=== PATIENT | female | born 1970 | race Caucasian/White ===

== ENCOUNTER 2017-05-15 09:12 | Inpatient (IN) | payer OTHER ==
[~2017-05-15] VITALS: Ht 170.2 cm; Wt 69.4 kg
[2017-05-15 09:59] LABS: ABSOLUTE BASOPHIL COUNT 0 /CUMM (0.0-0.2); ABSOLUTE EOSINOPHIL COUNT 0 /CUMM (0.0-0.7); ABSOLUTE GRANULOCYTE CT 6.6 /CUMM (1.4-6.5); ABSOLUTE LYMPH COUNT 1.1 /CUMM (1.2-3.4); ABSOLUTE MONOCYTE COUNT 0.6 /CUMM (0.10-0.60); BASOPHIL % 0.4 % (0.0-2.0); EOSINOPHIL % 0.6 % (0-5); GRANULOCYTE % 79.3 % (42.2-75.2); HEMATOCRIT 30.2 % (37-47); MEAN CORPUSCULAR HGB 26.1 PG (27.0-31.0); MEAN CORPUSCULAR HGB CONC 32.9 G/DL (33.0-37.0); MEAN CORPUSCULAR VOLUME 79.3 FL (81.0-99.0); MEAN PLATELET VOLUME 6.9 FL (7.4-10.4); PLATELET COUNT 424 /CUMM (130-400); RBC DISTRIBUTION WIDTH 17.6 % (11.5-14.5); RED BLOOD CELL CT 3.81 /CUMM (4.20-5.40); WHITE BLOOD CELL COUNT 8.3 /CUMM (4.8-10.8)
--- NOTE | 2017-05-15 10:33 | ED PSYCHIATRIC COMPLAINT ---
History of Present Illness General Chief Complaint: Psychiatric Related Complaint Stated Complaint: PT STATES"I GOT ANGRY" BLD TO LFT WRIST Source: patient, old records Exam Limitations: no limitations Vital Signs & Intake/Output Vital Signs & Intake/Output Vital Signs Date Time Temp Pulse Resp B/P B/P Pulse O2 O2 Flow FiO2 Mean Ox Delivery Rate 05/154 98.4 59 16 103/56 99 Room Air 05/15 1733 98.4 89 16 103/56 05/15 0942 99 Room Air 05/15 0919 97.0 91 16 124/80 98 Room Air Allergies Coded Allergies: No Known Allergies (05/15/17) Reconcile Medications No Known Home Medications Triage Note: 47F ARRIVES TEARFUL, DEPRESSED, +SI WITH PLAN TO JUMP IN FRONT OF A BUS. FRESH SUPERFICIAL LAC'S TO ENTIRE LEFT FOREARM. DENIES HI. HAS BEEN OFF MEDS X2 WEEKS AND FALL OUT WITH PSYCHIATRIST. CURRENTLY BEING TAPERED ON METHADONE, DAILY DOSE 50MG FROM [facility]. PT LEFT [facility] MONDAY AND THAT WAS HER LAST DOSE. PRESENTS DOWNCAST, DYSPHORIC. AOOX3. AGREEABLE TO PLAN FOR EVALUATION, WANDING AND CHANGING. GIVEN URINE CUP FOR SAMPLE. TO BAUMAN D AND SECURITY PRESENT FOR WANDING AND CHANGING Triage Nurses Notes Reviewed? yes Onset: Just prior to arrival Duration: week(s): Timing: recent history Severity: moderate, severe Associated Symptoms: anxiety, impaired concentration, insomnia, suicidal ideation LMP (ages 10-50): unknown : No Patient currently breastfeeds: No HPI: 2 weeks prior to admission patient reports running out of her bipolar medications and has been having increasing anxiety impaired concentration insomnia suicidal thoughts with illegal drug use of heroin cocaine. Prior to admission she began cutting her left forearm. She denies fever chills nausea vomiting diarrhea abdominal pain chest pain shortness breath headache dysuria rash homicidal ideation hallucination. Past History Travel History Traveled to [place] past 21 day No Medical History Any Pertinent Medical History? see below for history Neurological: NONE EENT: NONE Cardiovascular: NONE Respiratory: NONE Gastrointestinal: NONE Hepatic: NONE Renal: NONE Musculoskeletal: NONE Psychiatric: anxiety, depression, METHADONE Endocrine: NONE Blood Disorders: NONE Isolation History: Standard Surgical History Surgical History: non-contributory Psychosocial History What is your primary language Haitian Tobacco Use: Current Daily Use Daily Tobacco Use Amount/Type: => 5 Cigarettes daily ETOH Use: occasional use Illicit Drug Use: benzodiazepines Family History Hx Contributory? No Review of Systems Review of Systems Constitutional: Reports: no symptoms. EENTM: Reports: no symptoms. Respiratory: Reports: no symptoms. Cardiovascular: Reports: no symptoms. GI: Reports: no symptoms. Genitourinary: Reports: no symptoms. Musculoskeletal: Reports: no symptoms. Skin: Reports: see HPI. Neurological/Psychological: Reports: see HPI, anxiety, depressed, emotional problems. Hematologic/Endocrine: Reports: no symptoms. Immunologic/Allergic: Reports: no symptoms. All Other Systems: Reviewed and Negative Physical Exam Physical Exam General Appearance: well developed/nourished, alert, awake, anxious, moderate distress, thin Head: atraumatic, normal appearance Eyes: Bilateral: normal appearance, PERRL, EOMI. Ears, Nose, Throat: normal pharynx, normal ENT inspection, hearing grossly normal Neck: normal inspection, supple, full range of motion, no midline tenderness Respiratory: normal breath sounds, chest non-tender, no respiratory distress, quiet respiration, lungs clear Cardiovascular: regular rate/rhythm, normal peripheral pulses, norml femoral pulses equa Gastrointestinal: normal bowel sounds, soft, non-tender, no organomegaly Extremities: normal range of motion, no ligament instability Neurological/Psychiatric: no motor/sensory deficits, awake, agitated, alert, anxious, hang gliding instructor II-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 yes 2 Previous Attempts/Psych Care yes 1 Excessive Ethanol/Drug Use? yes 1 Rational Thinking Loss? yes 2 Single//? yes 1 Social Support? has support 0 Stated Future Intent? yes 2 Total 9 SAD PERSONS Done? yes Progress Differential Diagnosis: drug intoxication, drug overdose, drug withdrawal, electrolyte abnormality, hypoglycemia Plan of Care: Orders Procedure Date/time Status Regular Diet 05/15 L Active Admit to inpatient psych 05/15 1814 Active Continuous Observation Monitor 05/15 1735 Active CIWA 05/15 1523 Active Continuous Observation Monitor 05/15 1335 Active Add-on Test (ER Only) 05/15 1145 Active ETHANOL 01/22 0948 Complete Continuous Observation Monitor 05/15 936 Active URINE 05/15 936 Complete COMPREHENSIVE METABOLIC PANEL 05/15 936 Complete CBC WITHOUT DIFFERENTIAL 05/15 936 Complete EKG 05/15 936 Active ED CRISIS PSYCH CONSULT 05/15 936 Active URINE DRUGS OF ABUSE 05/15 928 Complete Current Medications Sig/Shirin Start time Last Medication Dose Stop Time Status Admin Acetaminophen 650 MG ONCE ONE 05/15 1814 UNVr (Tylenol) 05/15 1815 Lorazepam 1 MG ONE ONE 05/15 1814 UNVr (Ativan) 05/15 1815 Laboratory Tests 05/15/17947: Anion Gap 13, Estimated GFR > 60, BUN/Creatinine Ratio 16.7, Glucose 109 H, Calcium 9.3, Total Bilirubin 0.4, AST 28, ALT 27, Alkaline Phosphatase 99, Total Protein 7.3, Albumin 3.8, Globulin 3.5, Albumin/Globulin Ratio 1.1, CBC w Diff NO MAN DIFF REQ, RBC 3.81 L, MCV 79.3 L, MCH 26.1 L, RDW 17.6 H, MPV 6.9 L, Gran % 79.3 H, Lymphocytes % 13.0 L, Monocytes % 6.7, Eosinophils % 0.6, Basophils % 0.4, Absolute Granulocytes 6.6 H, Absolute Lymphocytes 1.1 L, Absolute Monocytes 0.6, Absolute Eosinophils 0, Absolute Basophils 0, PUBS MCHC 32.9 L, Serum Alcohol < 10.0 05/15/17940: Urine Opiates Screen > 4000.00 H, Methadone Screen > 735 H, Barbiturate Screen 74, Ur Phencyclidine Scrn 12.60, Amphetamines Screen 105, U Benzodiazepines Scrn < 85, Urine Cocaine Screen > 1000 H, Urine Cannabis Screen < 5.00, Urine Test NEGATIVE 05/15/17936: Methadone Screen Cancelled, Barbiturate Screen Cancelled, Ur Phencyclidine Scrn Cancelled, Amphetamines Screen Cancelled, U Benzodiazepines Scrn Cancelled, Urine Cocaine Screen Cancelled, Urine Cannabis Screen Cancelled Departure Departure Time of Disposition: 1814 Disposition: STILL A PATIENT Condition: Stable Clinical Impression Primary Impression: Depression with suicidal ideation Secondary Impressions: Deliberate self-cutting, Polysubstance abuse Referrals: Patient Has No Primary Care Dr (PCP/Family) Departure Forms: Customer Survey General Discharge Information Prescriptions: Current Visit Scripts No Known Home Medications Psych Admission Note Psychiatric Admission: I have seen and evaluated JENNY ALVAREZ. I have also reviewed all the pertinent lab results and diagnostic results. JENNY ALVAREZ will be admitted to our inpatient Psychiatric unit for treatment and care.
--- NOTE | 2017-05-15 16:13 | ED PSYCH CRISIS CONSULTATION ---
Crisis Consult Basic Assessment Date of Consult: 05/15/17 Responsible Person/Accompanied By: self Insurance Authorization: Insurance #1: Insurance name: JIGAR BATES Phone number: Policy number: [id number] Group number: Authorization number: ED Provider: Patient's ED Provider: Shan Bearden MD Primary Care Physician: Patient's PCP: Patient Has No Primary Care Dr PCP's Phone Number: Current Psychiatrist: last seen by Bruno Fransisco LANGE [phone]. d/c from practice Apr 28 2017 Chief Complaint: Psychiatric Related Complaint Patient's Quote: I just wasnt to jump in front of a bus. Present Illness: Pt is a 47 yo female presenting to [facility] ED this morning with SI. Pt states she is having racing and crazy thoughts including thoughts to "jump in front of a bus". Pt presents fresh superficial lacerations on her left forearm. She states it was both an act of self-harm and to release anxiety. Pt reports a hx of multiple suicide attempts with last one 6 mos ago from Klonopin overdose. She reports her first inpatient psychiatric admission was at age 21. Reportedly pt has had 3 inpatient admissions at [facility] in 2017. She reports previous diagnosis of Bipolar, Borderline Personality d/o and OCD. Pt also has a long hx of substance abuse including cocaine, benzos and heroin. Pt reports receiving Methadone 50 mg from [facility] past 6 yrs. Pt reports attempting benzo detox at [facility] in [place] but left early. Pt reports receiving medication management with Jean Moody APRN in [place] ([phone]) who abruptly stopped prescribing her medications. She reports uncertainty on why he no longer will treat her (see collateral section for further medication history). Pt reports relapse of heroin and cocaine since medications were discontinued. Pt reports feeling overwhelmed with emotions and states "I feel like I'm being buried alive ". Pt reports "incessant chatter" of thoughts to harm self. Pt reports she is on disability and doesn't work. Pt reports residing with her 25 yo son in [place]. She has 4 younger children that reside in [place] with her mother. Pt reports sleeping alot. Pt states "I cant get enough sleep. I want to sleep and not wake up". Pt denies HI, AH/VH. No presence of psychosis. Pt presents as lethargic, engaged, cooperative and OX3. Pt verbalizing needing inpatient psychiatric admission or she will harm herself. Case reviewed with Dr Pérez. Pt will be admitted voluntarily to [facility]. Patient's Address: [address] [place] [address] Other Phone Number: Who Do You Live With? Son (age 25) Family/Informants Interviewed: Collateral provided by Javan Moody APRN toll repairer central office. Pt seen since May 2015. Prescribed Xanax 2mg/4x/day; Latuda 80mg; Trileptal 300mg and Prozosin 5 mg. Plan was to work towards discontinuing xanax and starting Prozac 40 mg BID and Klonopin 1mg BID but pt was discharged from practice on Apr 28 so unable to follow through on plan. Pt was discharged do to poor compliance, not attending appointments and concerns that she was being prescribed benzos by 2 different providers and she was either abusing them or selling them. Collateral also reports that pt had 3 inpatient psycha dmissions at [facility] past yr (June, July and September 2016). Allergies - Coded Allergies: No Known Allergies (05/15/17) Current Medications - No Known Home Medications Laboratory Results: Laboratory Tests 05/15/17 0948: Anion Gap 13, Estimated GFR > 60, BUN/Creatinine Ratio 16.7, Glucose 109 H, Calcium 9.3, Total Bilirubin 0.4, AST 28, ALT 27, Alkaline Phosphatase 99, Total Protein 7.3, Albumin 3.8, Globulin 3.5, Albumin/Globulin Ratio 1.1, CBC w Diff NO MAN DIFF REQ, RBC 3.81 L, MCV 79.3 L, MCH 26.1 L, RDW 17.6 H, MPV 6.9 L, Gran % 79.3 H, Lymphocytes % 13.0 L, Monocytes % 6.7, Eosinophils % 0.6, Basophils % 0.4, Absolute Granulocytes 6.6 H, Absolute Lymphocytes 1.1 L, Absolute Monocytes 0.6, Absolute Eosinophils 0, Absolute Basophils 0, PUBS MCHC 32.9 L, Serum Alcohol < 10.0 05/15/17 0941: Urine Opiates Screen > 4000.00 H, Methadone Screen > 735 H, Barbiturate Screen 74, Ur Phencyclidine Scrn 12.60, Amphetamines Screen 105, U Benzodiazepines Scrn < 85, Urine Cocaine Screen > 1000 H, Urine Cannabis Screen < 5.00, Urine Test NEGATIVE 05/15/17 0937: Methadone Screen Cancelled, Barbiturate Screen Cancelled, Ur Phencyclidine Scrn Cancelled, Amphetamines Screen Cancelled, U Benzodiazepines Scrn Cancelled, Urine Cocaine Screen Cancelled, Urine Cannabis Screen Cancelled Past History Past Medical History Neurological: NONE EENT: NONE Cardiovascular: NONE Respiratory: NONE Gastrointestinal: NONE Hepatic: NONE Renal: NONE Musculoskeletal: NONE Psychiatric: anxiety, depression, METHADONE Endocrine: NONE Blood Disorders: NONE Past Surgical History Surgical History: non-contributory Psychosocial History Strengths/Capabilities: pt reports motivation to get help Psychiatric Treatment History Psych Treatment Psychiatric Treatment Yes Inpatient Treatment Yes Outpatient Treatment Yes Location of Treatment [facility] 2017 X3; [facility] Reason for Treatment Bipolar d/o polysubstance abuse Dates of Treatment chronic tx hx. First inpatient age 21. Response to Treatment pt has long history of substance abuse and difficulty managing mental health Diagnosis by History: Bipolar d/o Borderline personality Substance Use/Abuse History Drug Use/Abuse 1 Substances Used/Abused Yes Substance Used/Abused Cocaine Last Used yesterday Drug Use/Abuse 2 Substances Used/Abused Yes Substance Used/Abused Benzodiazepines Drug Use/Abuse 3 Substances Used/Abused Yes Drug Use/Abuse 4 Substances Used/Abused Yes Substance Used/Abused Heroin Drug Use/Abuse 5 Substances Used/Abused Yes Substance Used/Abused Prescribed Opiates (Methadone) Last Used last prescribed dose may 10 How much used/taken 50 mg For how long 6 yrs Substance Abuse Treatment Substance Abuse Treatment Past Substance Abuse TX Yes Inpatient Treatment Yes Outpatient Treatment Yes Location of Treatment [facility]; [facility] Reason for Treatment last week detox at [facility] Methadone maintenance at [facility] Response to Treatment pt prematurely left detox this weekend. Pt discharged from [facility] on apr 28 due to concerns she was abusing benzos Comments: pt reports hx of heroin abuse and on methadone past 6 yrs, Pt reports recent cocaine and heroin use to self medicate following [facility] stopping prescriptions to her medications. Pt reportedly being prescribed benzos by [facility] and [facility] Current Mental Status Mental Status Orientation: Person, Place, Situation Affect: Depressed Speech: WNL Neuro-vegetative: Anhedonia, Appetite Decreased, Energy Decreased, Helpless, Hypersomnia Appearance Appearance- Dress/Hygiene: pt in hospital scrubs; disheveled, fresh superficial lacerations to left forearm. Behaviors Thought Process: WNL Thought Content: Auditory Hallucinations Memory: WNL Insight: Fair SI/HI Risk Assessment Past Suicidal Ideation/Attempts Yes Current Suicidal Ideation/Att Yes Past Homicidal Ideation/Att: No Current Homicidal Ideation/Attempts No Degree of Intent: States Intent Danger To: Self Gravely Disabled: Poor Impulse Control, Poor Judgment Risk Factors: high anxiety/distress, history of suicide atmpts, SA/MH hospitalized, substance abuse, poor impulse control, limited support Lethality Ratin PTSD Checklist PTSD Done? patient declined ED Management Sitter: Yes Restraints: No DSM5/PS Stressors/Medical Prob Diagnosis' (DSM 5, Stressors, Medical): Unspecified Bipolar Opiate Use d/o Cocaine use d/o Benzo Use d/o off medications recent detox attempt Current GAF: 20 Comments: Pt reports off medications past 2 weeks. Using multiple substance to self- medicate. Reports SI, racing and "crazy" thoughts. Fresh superficial lacerations entire left forearm. Pt hx of multiple suicide attempts and 3 inpatient admissions at [facility] past yr. Departure Disposition Psych Medical Clearance Date: 05/15/17 Medically Cleared at: 1445 Time Started: 1445 Time Ended: 1530 Psychiatrist Consulted: Rosamaria Pérez MD Date Disposition Established: 05/15/17 Time Disposition Established: 1744 Plan for Disposition - Modality: Inpatient Psychiatry Facility: [facility] Rationale for Disposition: Pt requires inpatient psychiatric admission to treat SI and re-establish psychotropic medications. Type of IP Admission: Voluntary Referrals Patient Has No Primary Care Dr (PCP/Family)
[2017-05-15 17:33] VITALS: BP 103/56
--- NOTE | 2017-05-15 19:04 | IP CRISIS DIAG ASSESS PSYCH ---
Diagnostic Assessment Basic Assessment Insurance Authorization: Insurance #1: Insurance name: JIGAR Hassan [employer] Phone number: Policy number: [id number] Group number: Authorization number: [id number] Primary Care Physician: Patient's PCP: Patient Has No Primary Care Dr PCP's Phone Number: Patient's Quote: I just wasnt to jump in front of a bus. Present Illness: Pt is a 47 yo female presenting to [facility] this morning with SI. Pt states she is having racing and crazy thoughts including thoughts to "jump in front of a bus". Pt presents fresh superficial lacerations on her left forearm. She states it was both an act of self-harm and to release anxiety. Pt reports a hx of multiple suicide attempts with last one 6 mos ago from Klonopin overdose. She reports her first inpatient psychiatric admission was at age 21. Reportedly pt has had 3 inpatient admissions at [facility] in 2017. She reports previous diagnosis of Bipolar, Borderline Personality d/o and OCD. Pt also has a long hx of substance abuse including cocaine, benzos and heroin. Pt reports receiving Methadone 50 mg from [facility] past 6 yrs. Pt reports attempting benzo detox at [facility] in [place] but left early. Pt reports receiving medication management with Jean Moody APRN in [place] ([phone]) who abruptly stopped prescribing her medications. She reports uncertainty on why he no longer will treat her (see collateral section for further medication history). Pt reports relapse of heroin and cocaine since medications were discontinued. Pt reports feeling overwhelmed with emotions and states "I feel like I'm being buried alive ". Pt reports "incessant chatter" of thoughts to harm self. Pt reports she is on disability and doesn't work. Pt reports residing with her 25 yo son in [place]. She has 4 younger children that reside in [place] with her mother. Pt reports sleeping alot. Pt states "I cant get enough sleep. I want to sleep and not wake up". Pt denies HI, AH/VH. No presence of psychosis. Pt presents as lethargic, engaged, cooperative and OX3. Pt verbalizing needing inpatient psychiatric admission or she will harm herself. Case reviewed with Dr Pérez. Pt will be admitted voluntarily to [facility]. Patient's Address: [address] [place] [address] Other Phone Number: Who Do You Live With? Son (age 25) Feel Safe Where You Live? Yes Feel Safe in Your Relationship Yes Marital Status: single Do You Have Children? Yes Ages? 25,22,16,13,6 Primary Language? Slovak Language(s) Spoken At Home: Slovak Family/Informants Interviewed: Collateral provided by Javan Moody APRN program officer. Pt seen since May 2015. Prescribed Xanax 2mg/4x/day; Latuda 80mg; Trileptal 300mg and Prozosin 5 mg. Plan was to work towards discontinuing xanax and starting Prozac 40 mg BID and Klonopin 1mg BID but pt was discharged from practice on Apr 28 so unable to follow through on plan. Pt was discharged do to poor compliance, not attending appointments and concerns that she was being prescribed benzos by 2 different providers and she was either abusing them or selling them. Collateral also reports that pt had 3 inpatient psycha dmissions at [facility] past yr (June, July and September 2016). Allergies - Coded Allergies: No Known Allergies (05/15/17) Current Medications - No Known Home Medications Consequences of Psych Med Use: pt has been off medications past 2 weeks. Prior provider reports pt hasn't been med compliant Lab Results: Laboratory Tests 05/15/17 0948: Anion Gap 13, Estimated GFR > 60, BUN/Creatinine Ratio 16.7, Glucose 109 H, Calcium 9.3, Total Bilirubin 0.4, AST 28, ALT 27, Alkaline Phosphatase 99, Total Protein 7.3, Albumin 3.8, Globulin 3.5, Albumin/Globulin Ratio 1.1, CBC w Diff NO MAN DIFF REQ, RBC 3.81 L, MCV 79.3 L, MCH 26.1 L, RDW 17.6 H, MPV 6.9 L, Gran % 79.3 H, Lymphocytes % 13.0 L, Monocytes % 6.7, Eosinophils % 0.6, Basophils % 0.4, Absolute Granulocytes 6.6 H, Absolute Lymphocytes 1.1 L, Absolute Monocytes 0.6, Absolute Eosinophils 0, Absolute Basophils 0, PUBS MCHC 32.9 L, Serum Alcohol < 10.0 05/15/17 0941: Urine Opiates Screen > 4000.00 H, Methadone Screen > 735 H, Barbiturate Screen 74, Ur Phencyclidine Scrn 12.60, Amphetamines Screen 105, U Benzodiazepines Scrn < 85, Urine Cocaine Screen > 1000 H, Urine Cannabis Screen < 5.00, Urine Test NEGATIVE 05/15/17 0937: Methadone Screen Cancelled, Barbiturate Screen Cancelled, Ur Phencyclidine Scrn Cancelled, Amphetamines Screen Cancelled, U Benzodiazepines Scrn Cancelled, Urine Cocaine Screen Cancelled, Urine Cannabis Screen Cancelled Toxicology Screen Completed? Yes Results: positive Symptoms of Use: pt positive for heroin and cocaine. pt receives methadone 50mg at [facility] Past History Past Surgical History Surgical History none Abuse/Trauma History Trauma History/Current Trauma: Denies Psychosocial History Strengths/Capabilities: pt reports motivation to get help Psychiatric Treatment History Psych Treatment Psychiatric Treatment Yes Inpatient Treatment Yes Outpatient Treatment Yes Location of Treatment [facility] 2017 X3; [facility] Reason for Treatment Bipolar d/o polysubstance abuse Dates of Treatment chronic tx hx. First inpatient age 21. Response to Treatment pt has long history of substance abuse and difficulty managing mental health Diagnosis by History: Bipolar d/o Borderline personality Risk Factors: high anxiety/distress, history of suicide atmpts, SA/MH hospitalized, substance abuse, poor impulse control, limited support Substance Use/Abuse History Drug Use/Abuse minimum 12mo Hx Substances Used/Abused Yes Substance Used/Abused Prescribed Opiates (Methadone) Last Used last prescribed dose may 10 How much used/taken 50 mg For how long 6 yrs Substance Abuse Treatment Substance Abuse Treatment Past Substance Abuse TX Yes Inpatient Treatment Yes Outpatient Treatment Yes Location of Treatment [facility]; [facility] Reason for Treatment last week detox at [facility] Methadone maintenance at [facility] Response to Treatment pt prematurely left detox this weekend. Pt discharged from [facility] on apr 28 due to concerns she was abusing benzos Comments: pt reports recent heroin and cocaine relapse due to need to self-medicate since [facility] stopped prescribing. Pt also recent etoh use to lessen benzo withdrawal. Education History Highest Level of Education: high school/GED Preferred Learning Style: visual, auditory, experiential Current Mental Status Mental Status Orientation: Person, Place, Situation Affect: Depressed Speech: WNL Neuro-vegetative: Anhedonia, Appetite Decreased, Energy Decreased, Helpless, Hypersomnia Appearance Appearance- Dress/Hygiene: pt in hospital scrubs; disheveled, fresh superficial lacerations to left forearm. Behaviors Thought Process: WNL Thought Content: Auditory Hallucinations Memory: WNL Insight: Fair SI/HI Risk Assessment - Minimum 6mo History- Past Suicidal Ideation/Attempts Yes Current Suicidal Ideation/Att Yes Past Homicidal Ideation/Att: No Current Homicidal Ideation/Attempts No Degree of Intent: States Intent Danger To: Self Gravely Disabled: Poor Impulse Control, Poor Judgment Risk Factors: high anxiety/distress, history of suicide atmpts, SA/MH hospitalized, substance abuse, poor impulse control, limited support Lethality Ratin Needs/Init TX Plan/Goals: Psychiatric evaluation medication assessment individual, family and group tx coordinated discharge planning AUDIT-C Questionnaire: AUDIT-C Questionnaire: Response Value ETOH use in the past year 2-4 times/month 2 # drinks typical/day 1 or 2 0 6 or > drinks per occasion Less than monthly 1 Total 3 DSM5/PS Stressors/Medical Prob Diagnosis' (DSM 5, Stressors, Medical): Unspecified Bipolar Opiate Use d/o Cocaine use d/o Benzo Use d/o off medications recent detox attempt Current GAF: 20 Comments: Pt reports off medications past 2 weeks. Using multiple substance to self-medicate. Reports SI, racing and "crazy" thoughts. Fresh superficial lacerations entire left forearm. Pt hx of multiple suicide attempts and 3 inpatient admissions at [facility] past yr.
[2017-05-15 20:21] VITALS: BP 121/70
[2017-05-15 20:22] VITALS: BP 121/70
[2017-05-15 22:06] VITALS: BP 100/62
[2017-05-16] VITALS (8 sets, daily range): BP systolic 86–125; BP diastolic 52–75
--- NOTE | 2017-05-16 13:15 | History & Physical ---
General Information and HPI MD Statement: I have seen and personally examined JENNY ALVAREZ and documented this H&P. The patient is a 47 year old F who presented with a patient stated chief complaint of "feeling like jumping in front of a bus". Source of Information: patient Exam Limitations: no limitations History of Present Illness: 47-year-old white female with psychiatric history having racing thoughts jumping in front of the bones. Also has scratches all over the forearms. Apparently off her medications due to problems with her psychiatrist patient needs a reevaluation and treatment also was having a problem with her methadone clinic Allergies/Medications Allergies: Coded Allergies: No Known Allergies (05/15/17) Home Med list No Known Home Medications Compliance With Home Meds: POOR Past History Travel History Traveled to [place] past 21 day No Medical History Neurological: NONE EENT: NONE Cardiovascular: NONE Respiratory: NONE Gastrointestinal: NONE Hepatic: NONE Renal: NONE Musculoskeletal: NONE Psychiatric: anxiety, depression, METHADONE Endocrine: NONE Blood Disorders: NONE Isolation History: Standard Surgical History Surgical History: non-contributory Past Family/Social History Psychosocial History ETOH Use: occasional use Illicit Drug Use: benzodiazepines Review of Systems Review of Systems Constitutional: Reports: see HPI. Exam & Diagnostic Data Last 24 Hrs of Vital Signs/I&O Vital Signs Date Time Temp Pulse Resp B/P B/P Pulse O2 O2 Flow FiO2 Mean Ox Delivery Rate 05/16 1207 61 98/52 05/16 1207 61 98/52 05/16 0758 97.4 77 119/69 05/16 0757 97.4 77 119/69 05/16 0232 64 102/60 05/16 0219 60 90/62 05/16 0006 62 86/58 05/15 2206 64 16 100/62 05/15 2021 96.8 65 121/70 05/15 2020 96.8 65 121/70 05/15 1734 98.4 59 16 103/56 99 Room Air 05/15 1732 98.4 89 16 103/56 Intake & Output 05/16 1600 05/16 0800 05/16 0000 Intake Total Output Total Balance Patient 153 lb Weight Physical Exam General Appearance Alert, Oriented X3, cannot stand still Skin scratches all over the forearms, and also bumps that look like lipomas in different parts of her body and an eczematous rash in her scalp HEENT PERRLA, EOMI Neck Supple, No JVD, No thryomegaly Lymphatic Axillary nl, Cervical nl Cardiovascular Regular Rate, No Murmurs Lungs coarse respiratory sounds Abdomen Soft, No Tenderness Neurological Exam Findings: Normal Gait, Strength at 5/5 X4 Ext, Normal Tone, Sensation Intact, Cranial Nerves 3-12 NL, Reflexes 2+, states she has a dropped right foot Cranial Nerves II through XII: Intact Extremities No Edema, Normal Pulses Vascular Normal Pulses, Pulses Symmetrical Last 24 Hrs of Labs/Shin: Laboratory Tests 05/15/17 0948: Anion Gap 13, Estimated GFR > 60, BUN/Creatinine Ratio 16.7, Glucose 109 H, Hemoglobin A1c Pending, Calcium 9.3, Total Bilirubin 0.4, AST 28, ALT 27, Alkaline Phosphatase 99, Total Protein 7.3, Albumin 3.8, Globulin 3.5, Albumin/ Globulin Ratio 1.1, Triglycerides Pending, Cholesterol Pending, LDL Cholesterol, Calc Pending, HDL Cholesterol Pending, Cholesterol/HDL Ratio Pending, TSH &T3 & Free T4 Intrp Pending, CBC w Diff NO MAN DIFF REQ, RBC 3.81 L, MCV 79.3 L, MCH 26.1 L, RDW 17.6 H, MPV 6.9 L, Gran % 79.3 H, Lymphocytes % 13.0 L, Monocytes % 6.7, Eosinophils % 0.6, Basophils % 0.4, Absolute Granulocytes 6.6 H, Absolute Lymphocytes 1.1 L, Absolute Monocytes 0.6, Absolute Eosinophils 0, Absolute Basophils 0, PUBS MCHC 32.9 L, Serum Alcohol < 10.0 05/15/17 0941: Urine Opiates Screen > 4000.00 H, Methadone Screen > 735 H, Barbiturate Screen 74, Ur Phencyclidine Scrn 12.60, Amphetamines Screen 105, U Benzodiazepines Scrn < 85, Urine Cocaine Screen > 1000 H, Urine Cannabis Screen < 5.00, Urine Test NEGATIVE 05/15/17 0937: Methadone Screen Cancelled, Barbiturate Screen Cancelled, Ur Phencyclidine Scrn Cancelled, Amphetamines Screen Cancelled, U Benzodiazepines Scrn Cancelled, Urine Cocaine Screen Cancelled, Urine Cannabis Screen Cancelled Diagnostic Data ITS Data Unobtainable at this time EKG Results No acute change Assessment/Plan As Ranked By This Provider Problem List: 1. Depression with suicidal ideation 2. Deliberate self-cutting 3. Polysubstance abuse Miscellaneous Miscellaneous Documentation Attending Case Discussed With: Froylan Gamble MD Primary Care Physician: Patient Has No Primary Care Patient sees these Specialists Psychiatry Level of Patient Care: Nicholas Consults Needed: Consulting Specialty: Psychiatry Consulting Physician: Tye Hansen Reason for Consult: depression suicidal ideations
--- NOTE | 2017-05-16 15:59 | SOCIAL WORKER PROG NOTE PSYCH ---
Social Work Progress Note Progress Note 2:45pm This contract technical writer met with patient. She identified stress related to the relationship with her children, "detoxing" and pressure from probation to enter treatment as the reason for her inpatient admission. Patient also expressed frustration about the Methadone taper and stated that she therefore submitted the 3 Day paper. Patient stated that she has court tomorrow and requested that this contract technical writer fax a letter to her staff attorney (Tu Plaza) informing him of her current hospitalization. Pt signed an [place] for her staff attorney; this contract technical writer and patient contacted [employer] ([phone]) to obtain his fax number ). Patient also requested that this contract technical writer contact the patient's PO ( Neil Collado) at [facility] ([phone]). Patient stated that she is interested in entering inpatient treatment, however, is concerned that she will be unable to do so as she is "not stable" due to the Methadone taper. She stated that she would like to return to [facility] where she is prescribed Methadone until she becomes and can enter an inpatient program, preferrably 90 days. She denied SI/HI/AH/VH. She agreed to inform nursing/ staff should she feel unsafe or have other concerns. 3:40pm A voicemail was left for the patient's PONeil, ([phone]) with this contract technical writer's call back number. 3:52pm Letter indicating dates of admission of current hospital admission was reviewed by the patient and faxed to [employer] Network[employer] In[employer] Tu Collado (fax: ). 3:50pm This contract technical writer received call from patient's PONeil. He stated that the patient needs to complete a phone screening with [facility] ([facility] - [phone]). Patient was provided with the phone number.
--- NOTE | 2017-05-16 16:49 | SOCIAL WORKER SOCIAL HX PSYCH ---
Social History Basic Assessment Insurance Authorization: Insurance #1: Insurance name: JIGAR Hassan [employer] Phone number: Policy number: [id number] Group number: Authorization number: Curr Source of Income/Entitlements: [facility] Primary Care Physician: Patient's PCP: Patient Has No Primary Care Dr PCP's Phone Number: Present Problem: Pt is a 47 yo female presenting to [facility] this morning with SI. Pt states she is having racing and crazy thoughts including thoughts to "jump in front of a bus". Pt presents fresh superficial lacerations on her left forearm. She states it was both an act of self-harm and to release anxiety. Pt reports a hx of multiple suicide attempts with last one 6 mos ago from Klonopin overdose. She reports her first inpatient psychiatric admission was at age 21. Reportedly pt has had 3 inpatient admissions at [facility] in 2017. She reports previous diagnosis of Bipolar, Borderline Personality d/o and OCD. Pt also has a long hx of substance abuse including cocaine, benzos and heroin. Pt reports receiving Methadone 50 mg from [facility] past 6 yrs. Pt reports attempting benzo detox at [facility] in [place] but left early. Pt reports receiving medication management with Jean oMody APRN in [place] ([phone]) who abruptly stopped prescribing her medications. She reports uncertainty on why he no longer will treat her (see collateral section for further medication history). Pt reports relapse of heroin and cocaine since medications were discontinued. Pt reports feeling overwhelmed with emotions and states "I feel like I'm being buried alive ". Pt reports "incessant chatter" of thoughts to harm self. Pt reports she is on disability and doesn't work. Pt reports residing with her 25 yo son in [place]. She has 4 younger children that reside in [place] with her mother. Pt reports sleeping alot. Pt states "I cant get enough sleep. I want to sleep and not wake up". Pt denies HI, AH/VH. No presence of psychosis. Pt presents as lethargic, engaged, cooperative and OX3. Pt verbalizing needing inpatient psychiatric admission or she will harm herself. Case reviewed with Dr Pérez. Pt will be admitted voluntarily to CPS.>>>Juan Peña LCSW Primary Language? Croatian Language(s) Spoken At Home: Croatian Living Situation Rents or Owns Home? rents Allergies - Coded Allergies: No Known Allergies (05/15/17) Current Medications - No Known Home Medications Past History Past Medical History Neurological: NONE EENT: NONE Cardiovascular: NONE Respiratory: NONE Gastrointestinal: NONE Hepatic: NONE Renal: NONE Musculoskeletal: NONE Psychiatric: anxiety, depression, METHADONE Endocrine: NONE Blood Disorders: NONE Past Surgical History Surgical History: non-contributory /Family History Place/Country of Origin: [facility] Childhood Family Constellation: none stated Primary Childhood Caretakers: father, mother Family Life During Childhood: rough because they were so over protective DCF Involvement? No Relationship w/Mother: ok Relationship w/Father: ok Any Sibling(s)? Yes Sibling's Gender(s)/Age(s): female Sibling 1:, female Sibling 2: Relationship w/Sibling(s): Good. Pt has 2 sisters that live in [place] Relationship w/Friends: no friends Family Psych/Sub Abuse/Add Hx: drug of choice, diagnosis Number of Pregnancies: 7 Number of Miscarriages: 2 Number of Abortions: 0 Other Comments: Pt has 5 children Abuse/Trauma History Trauma History/Current Trauma: Denies Legal History Legal Guardian/Address/Phone: self Current Legal Status: reports current legal issues Pending Court Dates: no Have you ever been arrested Yes Number of Arrests: 30 Hx of Juvenile Legal Charges? No Hx of Adult Legal Charges? Yes If Yes: misdemeanor, felony List/Date Most Recent Lgl Chgs: unknown Chgs/Dts/Incarcerations/Sentnc unknown Civil Proceedings: none stated Domestic Relations Court: none stated Child Protective Serv Involvmnt none stated Rn Forensic denies Psychosocial History Primary Support System: none Strengths/Capabilities: pt reports motivation to get help Weaknesses: poor insight Physical Limitations (Interventions): none Last Physical: today (?) History of Seizures? Yes Last Seizure: 1 month ago History of Blackouts? No ADL Limitations: denies [place]/Social/Peer Relations no friends Meaningful Activities: journaling and music Childhood Taoist: Jehovah Witness Current Zoroastrian Affiliation: Jehovah Witness Is Spirituality Important to You? yes Patient's Ethnicity: Macedonian Cultural/Ethnic Issues: none stated Are There Developmental Issues? Yes If Yes, Explain: attention issues Milestones Achieved: fine motor, gross motor Psychiatric Treatment History Psych Treatment Inpatient Treatment Yes Outpatient Treatment Yes Location of Treatment [facility] 2017 X3; [facility] Reason for Treatment Bipolar d/o polysubstance abuse Dates of Treatment chronic tx hx. First inpatient age 21. Response to Treatment pt has long history of substance abuse and difficulty managing mental health Current Endless Belt Finisher: unknown Treatment of Prior Episodes: [place] Diagnosis: Bipolar d/o Borderline personality Psychodynamic Issues: none stated Risk Factors: high anxiety/distress, history of suicide atmpts, SA/MH hospitalized, substance abuse, poor impulse control, limited support Substance Use/Abuse History Drug Use/Abuse Substance Used/Abused Prescribed Opiates (Methadone) First Use unknown Last Used last prescribed dose may 10 How much used/taken 50 mg How often unknown For how long 6 yrs Have Had Periods of Sobriety? Yes Explain: 4 years is pts longest period of sobriety Relapse History? Yes Have You Ever Attended AA? Yes Do You Attend AA Currently? Yes Do You Have a Sponsor? No Other Community Resources Used: [facility] Symptoms of Use: pt positive for heroin and cocaine. pt receives methadone 50mg at [facility] Substance Abuse Treatment Substance Abuse Treatment Inpatient Treatment Yes Outpatient Treatment Yes Location of Treatment [facility]; [facility] Reason for Treatment last week detox at [facility] Methadone maintenance at [facility] Response to Treatment pt prematurely left detox this weekend. Pt discharged from [facility] on apr 28 due to concerns she was abusing benzos Sexual History Sexually Active Yes Sexual Orientation Heterosexual Use of Protection Yes Sometimes Sexual Concerns: none Education History Highest Level of Education: high school/GED Preferred Learning Style: visual, auditory, experiential HX of Learning Difficulties: attention deficit Barriers to Learning: None reported Special Communication Needs: None reported Employment History Employment Unemployed Not in Labor Force: Disabled No. of Jobs in Last 5 Years: 0 Attendance: Absenteeism Performance: Below Average Comments: pt said she never had a job more than 3 days History Have You Been in The ? No Current Mental Status Problem List: 1. Polysubstance abuse 2. Depression 3. Deliberate self-cutting 4. Depression with suicidal ideation Mental Status Orientation: Person, Place, Situation Affect: Depressed Speech: WNL Neuro-vegetative: Anhedonia, Appetite Decreased, Energy Decreased, Helpless, Hypersomnia Appearance Appearance- Dress/Hygiene: pt in hospital scrubs; disheveled, fresh superficial lacerations to left forearm. Behaviors Thought Process: WNL Thought Content: Auditory Hallucinations Memory: WNL Insight: Fair SI/HI Risk Assessment Past Suicidal Ideation/Attempts Yes Current Suicidal Ideation/Att Yes Past Homicidal Ideation/Att: No Current Homicidal Ideation/Attempts No Degree of Intent: States Intent Danger To: Self Gravely Disabled: Poor Impulse Control, Poor Judgment Risk Factors: High Anxiety/Distress, SA/MH Hospitalization(s), Hx of suicide attempt(s), Isolated/no social suppor, Poor impulse control, Substance Abuse Lethality Ratin - Conclusion and Recommendations for treatment - and discharge planning Summary: Pt is a 47 yo female presenting to [facility] ED this morning with SI. Pt states she is having racing and crazy thoughts including thoughts to "jump in front of a bus". Pt presents fresh superficial lacerations on her left forearm. She states it was both an act of self-harm and to release anxiety. Pt reports a hx of multiple suicide attempts with last one 6 mos ago from Klonopin overdose. She reports her first inpatient psychiatric admission was at age 21. Reportedly pt has had 3 inpatient admissions at [facility] in 2017. She reports previous diagnosis of Bipolar, Borderline Personality d/o and OCD. Pt also has a long hx of substance abuse including cocaine, benzos and heroin. Pt reports receiving Methadone 50 mg from [facility] past 6 yrs. Pt reports attempting benzo detox at [facility] in [place] but left early. Pt reports receiving medication management with Jean Moody APRN in [place] ([phone]) who abruptly stopped prescribing her medications. She reports uncertainty on why he no longer will treat her (see collateral section for further medication history). Pt reports relapse of heroin and cocaine since medications were discontinued. Pt reports feeling overwhelmed with emotions and states "I feel like I'm being buried alive ". Pt reports "incessant chatter" of thoughts to harm self. Pt reports she is on disability and doesn't work. Pt reports residing with her 25 yo son in [place]. She has 4 younger children that reside in [place] with her mother. Pt reports sleeping alot. Pt states "I cant get enough sleep. I want to sleep and not wake up". Pt denies HI, AH/VH. No presence of psychosis. Pt presents as lethargic, engaged, cooperative and OX3. Pt verbalizing needing inpatient psychiatric admission or she will harm herself. Case reviewed with Dr Pérez. Pt will be admitted voluntarily to CPS.>>>Juan Peña [facility]
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
[2017-05-17 08:05] VITALS: BP 113/57
[2017-05-17 12:30] VITALS: BP 91/54
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
[2017-05-17 15:47] VITALS: BP 121/67
--- NOTE | 2017-05-17 17:27 | SOCIAL WORKER PROG NOTE PSYCH ---
Social Work Progress Note Progress Note 3:55pm This journalists and other writers met with patient. Patient described her mood as "flat" and denied SI/HI/AH/VH. She stated that she would like to continue with the Methadone taper until she is no longer taking Methadone. She expressed concern that Dr. Gamble would discharge her from [facility] prior to completing the Methadone taper. If this were to occur, patient stated that she would like to transfer her Methadone clinic from [facility] to [facility] due to location. Patient requested the number to [employer] in order to complete the phone screening as well as the number for her list of first job ideas. She was provided with both. She stated that she called [employer] and left a vm for Srini, however, did not have a call back number and requested that this journalists and other writers contact him. 4:38pm Patient signed an MAR[place] for [employer]. This journalists and other writers had been previously informed by her PO for the patient to speak with Srini. This journalists and other writers attempted to reach Srini and was instructed to call tomorrow as he was not in today. [employer]: [phone].
[2017-05-17 19:56] VITALS: BP 118/83
[2017-05-18 08:04] VITALS: BP 96/61
[2017-05-18 08:21] VITALS: BP 102/52
[2017-05-18 12:09] VITALS: BP 102/47
--- NOTE | 2017-05-18 12:16 | SOCIAL WORKER PROG NOTE PSYCH ---
Social Work Progress Note Progress Note JENNY ALVAREZ [id number] 1970 JENNY ALVAREZ [id number] Pended Authorization # Client Authorization # Type of Request [id number] CONCURRENT Date of Admission/ Start of Services Requested From Submission Date 05/15/2017 05/18/2017 05/18/2017
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
[2017-05-18 15:52] VITALS: BP 94/50
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
[2017-05-18 19:57] VITALS: BP 101/58
[2017-05-19 07:47] VITALS: BP 98/57
[2017-05-19 12:06] VITALS: BP 106/56
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
[2017-05-19 15:48] VITALS: BP 102/55
--- NOTE | 2017-05-19 17:04 | SOCIAL WORKER PROG NOTE PSYCH ---
Social Work Progress Note Progress Note 3:15pm This communications writer met with patient. She expressed fears about gaining weight and stated that she feels she had done so during this admission. She identified ways to practice self care such as speaking with nursing staff and attending groups. Patient stated that she continues to experience nightmares related to her ex, and when she does this, she wakes up with HI. Patient denied any plan related to HI. She stated that she has utilized nursing when she has a nightmare. Patient denied SI/AH/VH. She stated that she would like to schedule a family meeting with her father and son, however, both would need to attend by phone. 4:45pm This communications writer left generic vm for Srini at [facility] ([phone]) requesting a call back to discuss a referral. A call back number was provided. No patient information was included in this voicemail. Patient had previously been referred to their program by her intelligence officer basic. 4:53pm This communications writer left vm for Marlen Vizcaino with [facility] requesting a call back to make a referral. A call back number was left. 4:57pm This communications writer contacted patient's father, August Guerra, by phone ([phone]), at patient's request. A family meeting has been scheduled for 05/22/17 at 2pm. This communications writer also tried to reach the patient's son, August Guerra (same name as her father's) by phone ([phone]), however the call did not appear to go through. Patient was informed of this, who will try to reach her son.
[2017-05-19 19:47] VITALS: BP 109/59
[2017-05-20 07:54] VITALS: BP 103/56
[2017-05-20 12:10] VITALS: BP 95/50
--- NOTE | 2017-05-20 12:41 | CP SOUTH PROGRESS NOTE PSYCH ---
Psych (Inpt) Progress Note Progress Note Include the following elements, when applicable: Involvement in the active treatment of the patient with behavioral observations of the patient and the patient's response to the treatment. Review of the ongoing treatment process in the context of the treatment plan. Indication of how multi-disciplinary staff members are carrying out the treatment plan. Plans for future interventions and recommendations for revision of the treatment plan. Liaison with other physicians/providers. Progress Note: Pleasant, well related, somewhat over familiar/friendly, but appears appropriate. Stated that she feels she needs something in the afternoon b/c does not feel well and becomes anxious in afternoon, asking for clonazepam. I explained to her that she has prn gabapentin, that her bz dosing will remain the same at this time due to history of inappropriate usage. She wanted to have her Prozac increased, and initially I agreed, however reviewed record noting consideration of Prozac causing her cam, so will maintain on current dose, and discuss changed dosages if she remains stable over the next several days. Having difficulty with constipation, will take dulcolax once. MSE: pleasant, well related to over familiar woman, well groomed. Good eye contact, mild psychomotor activation, no tic or tremor. Speech normal. Mood is good, affect is full and reactive. Thought process linear. No evidence of psychosis, denies thoughts to harm self or anyone else. Insight is fair, judgment good. Plan: continue current plan of care. Dulcolax 1x dose tonight. Encouraged her to use PRN gabapentin. If tolerating Prozac w/o activation consider increase.
[2017-05-20 16:11] VITALS: BP 115/53
[2017-05-20 20:07] VITALS: BP 122/63
[2017-05-21 08:12] VITALS: BP 120/77
--- NOTE | 2017-05-21 11:29 | CP SOUTH PROGRESS NOTE PSYCH ---
See Addendum Psych (Inpt) Progress Note Progress Note Include the following elements, when applicable: Involvement in the active treatment of the patient with behavioral observations of the patient and the patient's response to the treatment. Review of the ongoing treatment process in the context of the treatment plan. Indication of how multi-disciplinary staff members are carrying out the treatment plan. Plans for future interventions and recommendations for revision of the treatment plan. Liaison with other physicians/providers. Progress Note: Pleasant, well related, social. Stated that she had a fair bowel movement but not great, asking for more bisacodyl tonight. Stated she feels depressed and sometimes wants to cut herself, but has not acted on any of these thoughts. We discussed her sense of urgency to do something to relieve her mental pain, and what many people do including cut self, use drugs, eat, scream, fight, exercise. We discussed healthy ways to relieve this tension, including exercising in her room, screaming into or punching a pillow, crying, journaling or speaking to others. She stated she used to work out regularly when she was not using and found it had a great impact on her mood; appeared interested in trying again. MSE: pleasant, well related woman, well groomed. States she is tired but has no psychomotor agitation or slowing, appears alert and coherent to me. Her eye contact is good. She has no psychomotor agitation and no tic or tremor. Her speech is normal. Her mood is good, her affect is full and reactive. She is interested in learning about mental health and diet, nutrition, and appears engaged in discussion. She has no thought blocking or other psychosis evidenced. No evidence of thoughts to harm self or anyone else. Insight is fair, judgment good. Plan: continue current plan of care. Dulcolax 1x dose tonight again, no further doses. Encouraged exercise and movement in the day time.
[2017-05-21 12:07] VITALS: BP 100/51
[2017-05-21 16:02] VITALS: BP 114/61
[2017-05-21 19:57] VITALS: BP 127/60
[2017-05-21 21:57] VITALS: BP 111/61
[2017-05-22 07:38] VITALS: BP 103/65
[2017-05-22] MEDS ORDERED: GABAPENTIN300 M2 PO (10:38)
[2017-05-22] MEDS ORDERED: KLONOPIN1 M1 PO (10:38)
[2017-05-22] MEDS ORDERED: ONE DAILY MULT1 EAC2 PO (10:38)
[2017-05-22] MEDS ORDERED: CLOBETASOL PROP15 GM TOP (10:38)
[2017-05-22] MEDS ORDERED: CARBAMAZEPINE200 M3 PO (10:38)
[2017-05-22] MEDS ORDERED: FLUOXETINE HCL20 M2 PO (10:38)
[2017-05-22] MEDS ORDERED: METHADONE HCL5 MG PO (10:44)
--- NOTE | 2017-05-22 11:07 | Patient Discharge Instructions ---
See Addendum Psych Discharge Inst General Discharge Information Reason for Admission: Cut left wrist superficially. SI to jump in front of a bus or off a dock. Relapsed with heroin and cocaine. [place] overwhelmed and had incessant chatter of thoughts to harm self. Also had HI to ex-boyfriend. Psy Discharge Primary Diag+ Bipolar d/o, mixed Psy Discharge Secondary Diag+ Opiate use disorder Cocaine use disorder Alcohol use disorder R/o PTSD Hx Hepatitis C Summary Tests/Major Procedures Lab Carbamazepine 6.6 ug/mL 05/21/17 0613 Lab ALT 27 U/L 05/15/17 0948 AST 28 U/L 05/15/17 0948 BUN 10 mg/dL 05/15/17 0948 Calcium 9.3 mg/dL 05/15/17 0948 Carbon Dioxide 27 mmol/L 05/15/17 0948 Chloride 99 mmol/L 05/15/17 0948 Cholesterol 173 MG/DL 05/15/17 0948 Cholesterol/HDL Ratio 3.0 % 05/15/17 0948 Creatinine 0.6 mg/dL 05/15/17 0948 Estimated GFR > 60 ml/min 05/15/17 0948 Glucose 109 mg/dL H 05/15/17 0948 HDL Cholesterol 58 mg/dL 05/15/17 0948 Hemoglobin A1c 5.9 % H 05/15/17 0948 LDL Cholesterol, Calc 108 MG/DL 05/15/17 0948 Potassium 4.2 mmol/L 05/15/17 0948 Sodium 138 mmol/L 05/15/17 0948 TSH &T3 &Free T4 Intrp 0.988 uIU/mL 05/15/17 0948 Total Bilirubin 0.4 mg/dL 05/15/17 0948 Triglycerides 38 mg/dL 05/15/17 0948 Absolute Granulocytes 6.6 /CUMM H 05/15/17 0948 Absolute Lymphocytes 1.1 /CUMM L 05/15/17 0948 Gran % 79.3 % H 05/15/17 0948 Hct 30.2 % L 05/15/17 0948 Hgb 9.9 G/DL L 05/15/17 0948 Lymphocytes % 13.0 % L 05/15/17 0948 MCH 26.1 PG L 05/15/17 0948 MCV 79.3 FL L 05/15/17 0948 MPV 6.9 FL L 05/15/1748 PUBS MCHC 32.9 G/DL L 05/15/17 0948 Plt Count 424 /CUMM H 05/15/17 0948 RBC 3.81 /CUMM L 05/15/17 0948 RDW 17.6 % H 05/15/17 0948 WBC 8.3 /CUMM 05/15/17 0948 Methadone Screen > 735 NG/ML H 05/15/17 0941 Serum Alcohol < 10.0 MG/DL 05/15/17 0948 U Benzodiazepines Scrn < 85 NG/ML 05/15/17 0941 Urine Cannabis Screen < 5.00 NG/ML 05/15/17 0941 Urine Cocaine Screen > 1000 NG/ML H 05/15/17 0941 Urine Opiates Screen > 4000.00 NG/ML H 05/15/1741 Urine Test NEGATIVE 05/15/17 0941 EKG 05/16/17 showed sinus rhythm @ 56, no significant change, normal EKG, QT 472, QTc 456. Studies Pending at ID: None. Patient Instructions Contact Information Your Psychiatrist on [facility] was Froylan Gamble MD * If you are experiencing an emergency related to this hospitalization, please call [phone] to contact the treating psychiatrist or the psychiatrist-on- call. * To Request a copy of your medical records, please contact the Medical Records Department at [phone]. * To request results of studies pending at the time of discharge, please call [phone]. * Continue your Medications until directed to stop by your Healthcare provider. General Medication Information Please continue to take your new medications and your continued home medications , unless otherwise indicated on your discharge medication list, or unless directed by your MD or SURVEILLANCE SUPERVISOR to stop them. Special Instructions Diet Regular Activity Normal Other Inst/Recommendations Taper off methadone at [facility]. See PCP for abnormal labs. Stay clean! - Tobacco Use Treatment Offered Post DC Medications Offered: Script Given-See Med List Post DC Tobacco Treatment Plan: [facility] Program Appt Date: 05/31/17 Program Appt Time: 1600 - EtOH/Drug Use D/O Treatment Offered Post DC Medications Offered: Script Given-See Med List (Methadone taper at [facility].) Post DC EtOH/SubAbuse TX Plan: Other SubAbuse/Dual Pgm ([facility]) Program Appt Date: 05/23/17 ([facility] walkin) Program Appt Time: 0900 Metabolic Screening ([x]) Not Applicable, patient not on a neuroleptic. OR () Patient on a neuroleptic(s) . Enter below results for Hemoglobin A1C, and lipid panel if obtained during the last 365 days. BMI: 21.900 Blood Pressure: 103/65 Laboratory Results From [place] EHR (If applicable): Advance Directives Does the Patient have Medical Advance Directives No/Refused further info Does Pt have Psychiatric Advance Directives? No/Refused further info Does Patient have a Designated Surrogate Decision Maker: No Information About Psychiatric Advance Directives Provided? Refused Discharge Plan Post Hospital Treatment Plan: Live with brother. [facility] IOP walking. [facility] to complete methadone taper. Please pursue [facility] inpatient rehab.
[2017-05-22] MEDS ORDERED: ATIVAN1 M1 PO (11:46)
[2017-05-22 12:09] VITALS: BP 117/73
--- NOTE | 2017-05-22 13:33 | CP SOUTH PROGRESS NOTE PSYCH ---
Psych (Inpt) Progress Note Progress Note Include the following elements, when applicable: Involvement in the active treatment of the patient with behavioral observations of the patient and the patient's response to the treatment. Review of the ongoing treatment process in the context of the treatment plan. Indication of how multi-disciplinary staff members are carrying out the treatment plan. Plans for future interventions and recommendations for revision of the treatment plan. Liaison with other physicians/providers. Progress Note: Dr. Rod's notes reviewed. Case and treatment plan discussed in team meeting. Tegretol level on 05/21/17 was 6.6. Staff reports that the patient is denying suicidal ideation. Described as still very demanding. Family meeting with father is scheduled for 2 p.m. by phone. Patient has a screening with [facility] tomorrow. Willing to attend an IOP in the interim. Patient seen at 10:10 AM. States she feels like crap. Affect is calm and euthymic. Complaints of withdrawal symptoms of runny nose, goosebumps, diarrhea and having no appetite. I explained that the diarrhea is likely due to all the laxatives she has taken. Reports mood is down. States she has no energy. States everything takes effort. Rates sad mood 0/10. Rates anxiety probably a 6/10. Denies feeling hopeless, helpless or worthless. Does feel guilty. Denies active and passive suicidal ideation. Denies homicidal ideation. Denies homicidal thoughts towards ex-boyfriend, Edagr. Also denies thoughts of harming him. Denies auditory and visual hallucinations. Regarding paranoia, states that she has enemies but she that she is not paranoid. Regarding sleep, states all she does is lie in bed and rock. Feels ready and safe for discharge. She understands that [facility] will need to taper methadone to off. Interim plan is a walk-in IOP intake at [facility] and patient plans to pursue screening with [facility] for tomorrow. Patient approached me later to report that multiple services are available to her at [facility]. IMPRESSION: Condition improved. Okay for discharge today to live with son with follow-up at [facility] for methadone taper to off and IOP to be arranged, pending possible placement at [facility].
[2017-05-22 16:07] VITALS: BP 121/70
--- NOTE | 2017-05-22 17:46 | SOCIAL WORKER PROG NOTE PSYCH ---
Social Work Progress Note Progress Note This telegraphic typewriter repairer called [facility] and learned that the wait list is 3-5 months and confirmed that the patient has a screening scheduled for tomorrow. He was not available to conduct an earlier screening. 10:11am Dr. Gamble and this telegraphic typewriter repairer met with patient. She complained of "runny nose, chills, no appetite. Everything takes effort." She denied SI/HI/AH/VH. She denied any thoughts to harm her ex and stated that [place]. Patient denied being paranoid and stated, "I do have enemies." Patient stated that she feels safe to discharge today and plans to continue with the Methadone taper, anticipating that her last dose is scheduled for , 05/25/17. Upon calling [facility], this telegraphic typewriter repairer was informed of their walk in hours and that they do NOT have a prescriber. They recommended that this telegraphic typewriter repairer [facility] ([phone][facility] regarding medication appointments. Upon calling [facility], this telegraphic typewriter repairer was informed that they do not have an IOP and only provide medication management to patient's who are in their outpatient services. This telegraphic typewriter repairer met with the patient. She expressed interest in a [facility] referral if a female bed is available for today. Patient stated that if she cannot go to [facility] she would go to [facility] for IOP, utilizing their walk in hours. 5:45pm This telegraphic typewriter repairer attempted to milton Senia at [facility] to conduct a screening for the patient and spoke with Cinda. Cinda requested that this telegraphic typewriter repairer call in the morning to conduct this screening. Senia previously informed this telegraphic typewriter repairer that the bed would not be jeopardized due to waiting until tomorrow to conduct the screening.
--- NOTE | 2017-05-22 18:09 | SOCIAL WORKER PROG NOTE PSYCH ---
Social Work Progress Note Progress Note [facility] ONLINE REVIEW COMPLETED, CHECK [facility] WEBSITE FOR NEXT REVIEW DATE PLEASE. \ PT REPORTED USE CRACK COCAINE $100-$300 DAILY - NASALLY FOR PAST 2 MONTHS, ON AND OFF USE FOR PAST YEAR. HAD 4YRS SOBER FROM ALL DRUGS, RELAPSED 1YR AGO. 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 USING ON AND OFF PAST YEAR, ALSO WAS SOBER FOR 4YRS RELAPSE 1YR AGO. REPORTS DRINKING 1 CAN OF A MIXED DRINK DAILY
[2017-05-22 19:47] VITALS: BP 124/82
[2017-05-23 07:53] VITALS: BP 136/74
--- NOTE | 2017-05-23 11:54 | CP SOUTH PROGRESS NOTE PSYCH ---
Psych (Inpt) Progress Note Progress Note Include the following elements, when applicable: Involvement in the active treatment of the patient with behavioral observations of the patient and the patient's response to the treatment. Review of the ongoing treatment process in the context of the treatment plan. Indication of how multi-disciplinary staff members are carrying out the treatment plan. Plans for future interventions and recommendations for revision of the treatment plan. Liaison with other physicians/providers. Progress Note: Case and treatment plan discussed in team meeting. Staff reports patient is denying suicidal ideation. Described as having been very disrespectful to peers in group. The patient remains mildly pressured and intrusive, but improved. Patient seen at 10:38 AM with Senia Aguila LCSW. Patient just got off a telephonic family meeting with her son, August, age 25. He will be taking her home on 05/29/17. Patient reports blurry vision right eye, new since this morning. She is able to finger count okay with this eye. I advised her to see her eye doctor after discharge. Reports having mild withdrawal in the morning. She is jiggling her left leg. Reports mood is pretty good. Rates sad mood 0/10 and anxiety 6-8/10. Denies feeling hopeless. Denies feeling helpless, stating that she is positive with the plan in place. Denies feeling worthless. Does feel guilty. Denies active and passive suicidal ideation. Denies homicidal ideation. Denies homicidal ideation or thoughts of harming her ex-boyfriend. Denies auditory and visual hallucinations. Reports that she does have enemies but states that she is not paranoid. Describes sleep as restless. Describes appetite as none. Reports energy is high at 10/10. Tolerating medications but had some nausea/vomiting this morning when looking at the fish tank. Nausea is better now. Feels ready and safe for discharge. IMPRESSION: Condition improved. Okay for [facility] today to [facility] in [place]. Patient will complete methadone taper on Monday and at [facility]. She will stay at [facility] until Monday, when she will go to an IOP intake at [facility]. As of Monday, she will return to live with her son, August, in [place].
--- NOTE | 2017-05-23 13:20 | DISCHARGE SUMMARY REPORT-PSYCH ---
Visit Information Visit Dates/Diagnosis' Admission Date: 05/15/17 Discharge Date: 05/23/17 Reason for Admission: . Psy Discharge Primary Diag: Bipolar Disorder Psy Discharge Secondary Diag: Opiate use disorder Cocaine use disorder Alcohol use disorder R/o PTSD Hx Hepatitis C Hospital Course Significant Lab Findings: Lab Carbamazepine 6.6 ug/mL 05/21/17 0613 Lab ALT 27 U/L 05/15/17 0948 AST 28 U/L 05/15/17 0948 BUN 10 mg/dL 05/15/17 0948 Calcium 9.3 mg/dL 05/15/17 0948 Carbon Dioxide 27 mmol/L 05/15/17 0948 Chloride 99 mmol/L 05/15/17 0948 Cholesterol 173 MG/DL 05/15/17 0948 Cholesterol/HDL Ratio 3.0 % 05/15/17 0948 Creatinine 0.6 mg/dL 05/15/17 0948 Estimated GFR > 60 ml/min 05/15/17 0948 Glucose 109 mg/dL H 05/15/17 0948 HDL Cholesterol 58 mg/dL 05/15/17 0948 Hemoglobin A1c 5.9 % H 05/15/17 0948 LDL Cholesterol, Calc 108 MG/DL 05/15/17 0948 Potassium 4.2 mmol/L 05/15/17 0948 Sodium 138 mmol/L 05/15/17 0948 TSH &T3 &Free T4 Intrp 0.988 uIU/mL 05/15/17 0948 Total Bilirubin 0.4 mg/dL 05/15/17 0948 Triglycerides 38 mg/dL 05/15/17 0948 Absolute Granulocytes 6.6 /CUMM H 05/15/17 0948 Absolute Lymphocytes 1.1 /CUMM L 05/15/17 0948 Gran % 79.3 % H 05/15/17 0948 Hct 30.2 % L 05/15/17 0948 Hgb 9.9 G/DL L 05/15/17 0948 Lymphocytes % 13.0 % L 05/15/17 0948 MCH 26.1 PG L 05/15/17 0948 MCV 79.3 FL L 05/15/17 0948 MPV 6.9 FL L 05/15/17 0948 PUBS MCHC 32.9 G/DL L 05/15/17 0948 Plt Count 424 /CUMM H 05/15/17 0948 RBC 3.81 /CUMM L 05/15/17 0948 RDW 17.6 % H 05/15/1748 WBC 8.3 /CUMM 05/15/17 0948 Methadone Screen > 735 NG/ML H 05/15/17 0941 Serum Alcohol < 10.0 MG/DL 05/15/17 0948 U Benzodiazepines Scrn < 85 NG/ML 05/15/17940 Urine Cannabis Screen < 5.00 NG/ML 05/15/17940 Urine Cocaine Screen > 1000 NG/ML H 05/15/17940 Urine Opiates Screen > 4000.00 NG/ML H 05/15/17940 Urine Test NEGATIVE 05/15/17940 EKG 05/16/17 showed sinus rhythm @ 56, no significant change, normal EKG, QT 472, QTc 456. Studies Pending at MD: Course Complications: Patient reported blurry vision right eye on morning of discharge. She was advised to follow up with an eye doctor. Consultations: Patient was seen for admission H&P by Dr. Myron Laird. Please refer to his note for additional information. Allergies: Coded Allergies: No Known Allergies (05/15/17) Hospital Course/TX Response: The patient was monitored on the unit for safety, opiate withdrawal and mood disorder. She participated in multi-modal treatments on the unit. Because of dirty urine on presentation, methadone was decreased by 5 mg/day per protocol. Clonidine was ordered but low blood pressures sometimes precluded its administration. Patient plans to continue taper to off at [facility] after discharge. Trileptal was discontinued and Tegretol was started at 200 mg b.i.d. for bipolar disorder. Behavior has improved though remains somewhat intrusive and pressured. Mood and affect have improved. Suicidal ideation and homicidal ideation towards ex- boyfriend have remitted. Progress note from date of discharge, 05/23/17: Case and treatment plan discussed in team meeting. Staff reports patient is denying suicidal ideation. Described as having been very disrespectful to peers in group. The patient remains mildly pressured and intrusive, but improved. Patient seen at 10:38 AM with Senia Aguila LCSW. Patient just got off a telephonic family meeting with her son, August, age 25. He will be taking her home on 05/29/17. Patient reports blurry vision right eye, new since this morning. She is able to finger count okay with this eye. I advised her to see her eye doctor after discharge. Reports having mild withdrawal in the morning. She is jiggling her left leg. Reports mood is pretty good. Rates sad mood 0/10 and anxiety 6-8/10. Denies feeling hopeless. Denies feeling helpless, stating that she is positive with the plan in place. Denies feeling worthless. Does feel guilty. Denies active and passive suicidal ideation. Denies homicidal ideation. Denies homicidal ideation or thoughts of harming her ex-boyfriend. Denies auditory and visual hallucinations. Reports that she does have enemies but states that she is not paranoid. Describes sleep as restless. Describes appetite as none. Reports energy is high at 10/10. Tolerating medications but had some nausea/vomiting this morning when looking at the fish tank. Nausea is better now. Feels ready and safe for discharge. IMPRESSION: Condition improved. Okay for [facility] today to [facility] [place]. Patient will complete methadone taper on Monday and at [facility]. She will stay at [facility] until Monday, when she will go to an IOP intake at [facility]. As of Monday, she will return to live with her son, August, in [place]. Discharge HBIPS - Tobacco Use Treatment Offered Post DC Medications Offered: Script Given-See Med List Post DC Tobacco Treatment Plan: [facility] Program Appt Date: 05/31/17 Program Appt Time: 1600 - EtOH/Drug Use D/O Treatment Offered Post DC Medications Offered: Script Given-See Med List (Remains on methadone taper.) Post DC EtOH/SubAbuse TX Plan: Other SubAbuse/Dual Pgm ([facility] IOP walkin) Program Appt Date: 05/29/17 Program Appt Time: 0745 Metabolic Screening - Screen if on a Neuroleptic Medication - Metabolic screening should include: - Blood Pressure, BMI, Glucose or Hgb A1c, & a - Lipid profile from within the past 365 days. Metabolic Screening ([x]) Not Applicable, patient not on a neuroleptic. OR () Patient on a neuroleptic(s) . Enter below results for Hemoglobin A1C, and lipid panel if obtained during the last 365 days. BMI: 21.900 Blood Pressure: 136/74 Laboratory Results From [place] EHR (If applicable): Discharge Instructions General Discharge Information Multiple Neuroleptics: ([x]) Not Applicable OR Document below three failed attempts at monotherapy, or a plan to taper to monotherapy, or augmentation of Clozapine. () Discharge Diet Regular Discharge Activity Normal DC Disposition: Patient is going [facility] [place], 05[facility]. Referrals Ordered Referrals Provider Referral 05/23/17 For Groups: [[facility] ] [facility] [address] [place] [address] Patient will utilize walk-in hours for (dual) IOP intake on 05/29/17. Patient is recommended to arrive around 7:45am. IOP Intake Walk-in Hours: Monday, Monday and Monday at 8am. *Patient to follow up with [facility] ([phone]) regarding inpatient treatment *Probation appointment on , 05/25/17, at 9:30am Provider Referral 05/23/17 [facility]: [facility] [address] [place] [address] Patient to present to [facility] on 05/24/17. Hours are between 6am and 6:30pm. Provider Referral 05/31/17 For Providers: [[facility]] For Groups: [[facility]] [facility] [address] [phone] Group: Wednesday, May 31, 2017 at 4:00pm Provider Referral 05/23/17 For Groups: [[facility]] [facility] [phone] Prescriptions Start taking the following new medications: Clonazepam (Klonopin) 1 MG TABLET 1 Milligram ORAL TWICE DAILY Qty = 28 No Refills Comments: Last Taken:05/23/17 Time:0800 Carbamazepine (Carbamazepine) 200 MG TABLET 200 Milligram ORAL TWICE DAILY Qty = 28 No Refills Comments: Last Taken:05/23/17 Time:0800 Gabapentin (Gabapentin) 300 MG CAPSULE 3 Tablet ORAL THREE TIMES DAILY Qty = 126 No Refills Comments: Last Taken:05/23/17 Time:0800 Fluoxetine HCl (Fluoxetine HCl) 20 MG CAPSULE 20 Milligram ORAL DAILY Qty = 14 No Refills Comments: Last Taken:05/23/17 Time:0800 Clobetasol Propionate (Clobetasol Propionate) 0.05 % CREAM..G. 1 Application On the skin TWICE DAILY Qty = 1 No Refills Instructions: APPLY Comments: Last Taken:05/23/17 Time:0800 Multivitamin (One Daily Multivitamin) 1 EACH TABLET 1 Tablet ORAL DAILY Qty = 14 No Refills Comments: Last Taken:05/23/17 Time:0800 Methadone HCl (Methadone HCl) 5 MG TABLET 1 Tablet ORAL SEE INSTRUCTIONS Qty = 6 No Refills Instructions: Take 3 on 05/23, 2 on 05/24, 1 on 05/25. Pt not given Rx. Goes to [facility]. Comments: Last Taken:05/23/17 GIVEN 15MG Time:0800 LORazepam (Ativan) 1 MG TAB 1 Milligram ORAL 4 TIMES A DAY Qty = 8 No Refills Instructions: This is to substitute for Klonopin until Klonopin can next be filled on 05/24/17. Comments: Last Taken:NOT GIVEN IN THE HOSPITAL Time:TO START AT HOME Other Inst/Recommendations Taper off methadone at [facility]. See PCP for abnormal labs. Stay clean! Copies To: .
--- NOTE | 2017-05-23 16:26 | SOCIAL WORKER PROG NOTE PSYCH ---
Social Work Progress Note Progress Note 9:10am This junior copywriter left vm for Senia at [facility] in response to her vm regarding the referrral. Patient had been referred to [facility] due to possibility of her going to [facility]. 9:53am This junior copywriter spoke with Senia at [place] [facility] to complete the screening for the patient. This junior copywriter spoke with Cinda to clarify discharge plans. Due to the stay being limited to 10-14 days at their program and the patient planning to move in with her son, it was suggested that she not begin an IOP in [place] only to transfer to a [facility]. If this is the case, patient would go [facility] where she will stay on a "hold" meaning that she would agree to not leaving the building without staff escort to appointments. Patient was agreeable to this. Patient will be transported by [facility] staff to [facility] for Methadone treatment, with anticipated last Methadone dose/complete of taper, on , 05/25/17. Patient agrees to stay at [facility], on this "hold", until 05/29/17 at which time she will go to [facility] for their intake and then stay with her son, while she attends the IOP until a inpatient bed becomes available. This junior copywriter and patient contacted her son, August, by phone. He was informed that the patient is scheduled to complete her Methadone taper on 05/25/17 and that she would stay at [facility] in [place] on a hold until Monday, . He stated that the patient's [id number], Amira Moody, will accompany the patient to the IOP intake at [facility] on 05/29/17. August (patient' s son) was informed that the patient completed a phone screening this morning with Chrissy Clifford and was informed that it would be a 3 month wait. Patient also shared that she has an appointment with her personnel officer on 05/25/17 at 9:30am. Patient denied SI/HI/AH/VH. She identified a safety plan, in which she would "talk to my daughter in law or my son." She was also informed that she would be provided with crisis numbers and warm line numbers upon discharge. She agreed to share these numbers with her son. He was informed and agreeable to the discharge plans. Dr. Gamble and this junior copywriter met with the patient. Patient denied having HI or any violent thoughts towards her ex or any other individual. She stated that she does not plan on having contact withm him and stated again, that he had "moved south." Please see Dr. Gamble's note for further information regarding this discussion. 10:52am At patient's request, this junior copywriter spoke with patient's father, August (same name as son), by phone regarding discharge plans (as described above). He was agreeable to these plans. 11:12am At patient's request, this junior copywriter spoke with patient's personnel officer, Neil Collado, regarding discharge plans. He was agreeable to these plans and was informed that the patient had been informed of the probation appointment on . He did not identify any safety concerns about her discharging today. He was informed of the 3-5 month wait for [facility] and stated that he would explore other possible sooner options. Patient was informed of this. Upon Cinda's (from [facility]) arrival to provide transportation from to [facility] in [place], this junior copywriter reviewed the discharge plans. She confirmed that she would be able to provide transportation to the probation appointment as well. Cinda was informed of patient's previous HI/ violent thoughts/actions towards her ex. She was informed that the patient is now denying any HI or violent thoughts towards her ex or any other individual. Cinda stated that she would discuss this further with the patient during their intake today. Cinda was informed that the patient would be provided with medications upon discharge, however, the Klonopin would not be able to be retrieved from the pharmacy until tomorrow. Cinda requested that the prescription is sent to the [facility] in [place]. This request was relayed to Dr. Gamble. This junior copywriter contacted [facility] for their fax number and was informed by Magaly that Jennifer Ly is the patient's clinician. She requested that the Patient Health Summary is faxed to Jennifer's attention. In addition, Gayle Gunter RN, will contact [facility] with information regarding the last dose of Methadone and the Methadone taper. Faxed Referral(s) 1 Referred To: [facility] Transition of Care Documents sent: Health Summary Fax #: [phone] Faxed by: Thor Aguila SPECIMEN TECHNICIAN Date faxed: 05/23/17 Time Faxed: [phone] Faxed Referral(s) 2 Referred To: [place] [facility] Transition of Care Documents sent: Health Summary Fax #: [phone] Faxed by: Thor SANTACRUZW Date faxed: 05/23/17 Time Faxed: [phone] Faxed Referral(s) 3 Referred To: [facility] Transition of Care Documents sent: Health Summary Faxed to: [facility], attn: Jennifer Ly Fax #: [phone] Faxed by: Thor Aguila SPECIMEN TECHNICIAN Date faxed: 05/23/17 Time Faxed: [phone] Comment: this junior copywriter informed by [facility] that Jennifer Ly is patient's clinican
[2017-05-24] MEDS ORDERED: KLONOPIN1 M1 PO (10:16)
--- NOTE | 2017-05-24 10:19 | IP INCIDENTAL NOTE PSYCH ---
Incidental Note Notation: I called to cancel Klonopin 1 mg, #28, 1 po bid, NR with [facility]. I eRx'd Klonopin 1 mg, #28, 1 po bid, NR to [facility] in [place].
== END 2017-05-23 11:31 | DRG 753 ==
LOC: ERH 09:12 → CP SOUTH 18:14 → ERHI 18:14 → EDBEDREQ 18:40 → ENTRNSPT 19:39 → EDTRNSPT 19:45 → EDTRNSPTSTS 19:45 → CP SOUTH 19:51 → CMPTRNSPT 19:54 → ENRESERV 20:00 → CP SOUTH 05-16 10:09
PROVIDERS: Emergency Medicine
DX: F31.60 Bipolar disorder, current episode mixed, unspecified (principal); F11.90 Opioid use, unspecified, uncomplicated; F14.90 Cocaine use, unspecified, uncomplicated; Z72.89 Other problems related to lifestyle; F43.10 Post-traumatic stress disorder, unspecified; B18.2 Chronic viral hepatitis C
CPT/HCPCS: 36415; 80307; 81025; 93005; 93010; G0480; J3490